=== PATIENT | male | born 2000 | race Caucasian/White ===

== ENCOUNTER 2022-09-28 21:09 | Emergency (ER) | payer OTHER, SELFPAY ==
[2022-09-28 21:16] VITALS: BP 125/71; PULSE 77; RESP 18; TEMP 36.6; O2SAT 100; BMI 23.0
--- NOTE | 2022-09-28 21:31 | ED_ITS ---
HPI - Dental/Oral General Time Seen by Provider: 21:31 Date Seen: 09/28/22 Chief complaint: Dental/Oral/Mouth Injury/Pain Stated complaint: right sided jaw pain Time Seen by Provider: 09/28/22 21:30 Source: patient and RN notes reviewed Mode of arrival: ambulatory Limitations: no limitations History of Present Illness HPI Narrative: Patient is coming in with right lower molar pain, his 2nd to last molar on the right lower jaw is painful. He has been taking Tylenol and ibuprofen. He is drinking water as it feels better when there was water on it. No fevers. He has a dentist appointment this . He admits he is not been to the dentist in a long time, has not had his wisdom teeth looked at. MD Complaint: tooth pain Related Data Allergies Allergy/AdvReac Type Severity Reaction Status Date / Time No Known Drug Allergies Allergy Verified 09/28/22 21:15 Review of Systems Narrative: As per HPI PFSH PFSH Social History Smoking Status: Current some day smoker Do you use any of these nicotine containing products: Vaping Products Second hand tobacco smoke exposure: No How often do you have a drink containing alcohol: never AUDIT-C Alcohol total score: 0 Non-prescribed substance use: marijuana (any form) service: No Exam Const: Vital Signs, click to edit/add: Vital Signs - 24 hr 09/28/22 21:16 Temperature 97.8 F Pulse Rate [Pulse Oximeter] 77 Respiratory Rate 18 Blood Pressure [Ri ght Upper Arm] 125/71 Pulse Oximetry 100 Oxygen Delivery Me thod Room Air 22-year-old male is alert interactive no apparent distress, able to speak in complete sentences. Face is atraumatic, no swelling or erythema noted. The 2nd to last molar on the right lower jaw has a crack along the gumline with a chunk of missing external tooth. Can see underlying exposed internal pulp of the tooth. There is no visible fluctuance or erythema or palpable abscess. He is definitely tender on the outside of the tooth where there is exposed internal contents of the tooth. Documenting provider has reviewed patient's vital signs: yes Course Vital Signs Vital signs: Initial Vital Signs Temperature 97.8 F 09/28/22 21:16 Temperature Source Temporal Artery Scan 09/28/22 21:16 Pulse Rate 77 09/28/22 21:16 Pulse Rhythm Regular 09/28/22 21:16 Respiratory Rate 18 09/28/22 21:16 Blood Pressure 125/71 09/28/22 21:16 Blood Pressure Mean 89 09/28/22 21:16 Blood Pressure Position Supine 09/28/22 21:16 Pulse Oximetry 100 09/28/22 21:16 Oxygen Delivery Method Room Air 09/28/22 21:16 Vital Signs Temperature 97.8 F 09/28/22 21:16 Pulse Rate 77 09/28/22 21:16 Respiratory Rate 18 09/28/22 21:16 Blood Pressure 125/71 09/28/22 21:16 Pulse Oximetry 100 09/28/22 21:16 Oxygen Delivery Method Room Air 09/28/22 21:16 Temperature 97.8 F 09/28/22 21:16 Pulse Rate 77 09/28/22 21:16 Respiratory Rate 18 09/28/22 21:16 Blood Pressure 125/71 09/28/22 21:16 Pulse Oximetry 100 09/28/22 21:16 Oxygen Delivery Method Room Air 09/28/22 21:16 Critical Care Time Critical Care Time Critical Care Time: No Discharge Plan Discharge Clinical Impression: Pain, dental Patient Disposition: Home, Self-Care Condition: Stable Instructions: Toothache (ED) Additional Instructions: Can continue with Tylenol and ibuprofen, follow bottle directions for dosing. If you have more severe pain, have written for tramadol, follow prescription instructions. We will cover with antibiotics in case there is underlying dental abscess starting. You absolutely need to follow up with the dentist for definitive care. No driving or operating machinery if you need the tramadol as this is a narcotic medication. Penicillin 500 mg, 1 tablet 3 times a day for 7 days Tramadol 50 mg, 1 every 6 hours as needed for pain, no driving, 15 prescribed Stand Alone Forms: [employer] Info Instructions
== END 2022-09-28 21:57 | disposition home or self-care (01) ==
LOC: ED 21:54
PROVIDERS: Emergency Provider Family Medicine
DX: K08.89 Other specified disorders of teeth and supporting structures (principal)
CPT/HCPCS: 99282

== ENCOUNTER 2024-10-15 21:57 | Emergency (ER) | payer BC, SELFPAY ==
--- OUTSIDE RECORDS SUMMARY | 2024-10-15 21:59 | XMS_ITS | Clinical Summary ---
Author Organization [facility] Address [address] [place] [id number] Care Team Providers Care Clinical Transformation Specialist Name Role Phone [facility] - Primary Care Provider Allergies Active Allergy Reactions Criticality Noted Date Comments Homeopathic Products Rash 10/26/2006 Medications No known medications Active Problems No known active problems Social History Tobacco Use Types Packs/Day Years Used Date Smoking Tobacco: Never Smokeless Tobacco: Never Tobacco Cessation:Counseling Given: Yes Alcohol Use Standard Drinks/Week Comments No 0 (1 standard drink = 0.6 oz pur e alcohol) Social Connections Answer Date Recorded Do you often feel lonely or isolated from those around you? 0 04/21/2024 Financial Resource Strain Answer Date R ecorded Difficulty of Paying Living Expenses 3 04/21/2024 Difficulty of Paying Living Expenses Not on file 04/21/2024 Food Insecurity Answer Date Recorded Do you worry your food will run out before you are able to buy more? 1 04/21/2024 Transportation Needs Answer Date Record ed Does lack of transportation keep you from medica l appointments? 1 04/21/2024 Does lack of transportation keep you from work, meetings or getting things that you need? 1 04/21/2024 Housing Stability Answer Date Recorded What is your housing situation today? 1 04/21/2024 Utilities Answer Date Recorded Do you have trouble paying f or utilities (for example, heat, electricity, water, phone)? 1 04/21/2024 Sex and Gender Information Value Date Recorded Sex Assigned at Not on file Legal Sex Male 6:29 AM TRAIN INSPECTOR Gender Identity Not on file Sexual Orientation Not on file Obstetrics History Last Filed Vital Signs Vital Sign Reading Time Taken Comments Blood Pressure 114/79 04/21/2024 12:51 PM TRAIN INSPECTOR Pulse 72 04/21/2024 12:51 PM TRAIN INSPECTOR Temperature 36.2 C (97.2 F) 10/27/2006 7:45 AM CDT Respiratory Rate 20 10/27/2006 7:55 AM CDT Oxygen Saturation 100% 04/21/2024 12: 51 PM TRAIN INSPECTOR Inhaled Oxygen Concentration - - Weight 77.9 kg (171 lb 12.8 oz) 025 12:51 PM TRAIN INSPECTOR Height 109.2 cm (3' 7) 10/27/2006 6:23 AM CDT Body Mass Index - - Plan of Treatment Health Maintenance Due Date Last Done Comments Tetanus booster 2013 Depression screening for age 12+ 2014 HIV for age 15-65 2017 HPV series for age 9-26 (1 - Male 3-dose series) 2017 BMI (ht and wt on same day) for age 18+ 2020 Hepatitis C screening for ag e 18-79 2020 Hepatitis B series for 19+ ( 1 of 3 - 19+ 3-dose series) 2021 COVID-19 vaccine series (3 - 2023-25 season) 2023 03/23/2021, 03/02/2021 Influenza Vaccine (#1) 2024 Pneumococcal series for age 6-49 Aged Out No longer eligible b ased on patient's age to complete this topic Insurance [facility] [id number] [place] [address] Advance Directives * Full Code (Latest Code Status on File) Date Activated Date Inactivated Comments 10/27/2006 6:34 AM 10/27/2006 10:34 AM Care Teams Clinical Transformation Specialist Relationship Specialty Start Date End Date [facility] - [address] [facility] [place] [address] PCP - General 06/09/22
--- OUTSIDE RECORDS SUMMARY | 2024-10-15 21:59 | XMS_ITS | Clinical Summary ---
Author Organization [facility] Address [address] [place] [address] [place] [address] Care Team Providers Care Harmonica Maker Name Role Phone No Ref-Primary, Physician Primary Care Provider Allergies No known active allergies Medications No known medications Active Problems No known active problems Immunizations Immunization Administration Dates Next Due Comvax (HIB/HepB) 06/11/2003,2002,08/03/19 03 DTAP (<7y) 10/18/2007, 4,2002,10/09,2002 Flu, Unspecified 01/28/2006,12/30/2005 Hepatitis A (Vaqta/Havrix)(P eds 12m-18y) 11/12/2014 Influenza (IIV3) PF 12/10/2003,01/05/2003,2002 Influenza (prior to 2023) 01/22/2012 Influenza Intranasal Vaccine 01/30/2010 Influenza Vaccine >6 months,quad, PF 11/15/2018, 01/30/2014 MMR (MMRII) 10/18/2007,06/11/2003 Meningococcal ACWY (Menveo ) 09/25/2013 Pneumococcal (PCV 7) 2002,2002,08/02 Poliovirus, inactivated (IPV) 10/18/2007 ,2002,2002,08/02 TDAP Vaccine (Adacel) 09/25/2013 Varicella (Varivax) 10/18/2007,06/11/2003 Family History Relation Status Comments Father Alive Mother Alive Social History Tobacco Use Types Packs/Day Years Used Date Smoking Tobacco: Never Smokeless Tobacco: Never Alcohol Use Standard Drinks/Week Comments Never 0 (1 standard drink = 0.6 oz pur e alcohol) AUDIT-C Answer Date Recorded Q1: How often do you have a drink containing alc ohol? Never 11/15/2018 Average Number of Drinks Not on file 019 Frequency of Binge Drinking Not on file 10/30 PHQ-2 Answer Date Recorded PHQ-2 Score 0 04/11/2019 Adolescent Education Answer Date Record ed Getting School Help Needed Not on file 11/20 Sex and Gender Information Value Date Recorded Sex Assigned at Not on file Legal Sex Male 5:10 PM CDT Gender Identity Not on file Sexual Orientation Not on file Last Filed Vital Signs Vital Sign Reading Time Taken Comments Blood Pressure 121/88 04/11/2024 4:10 AM LOAN REPRESENTATIVE Pulse 84 04/11/2024 4:10 AM LOAN REPRESENTATIVE Temperature 36.6 C (97.8 F) 04/11/2024 3:17 AM LOAN REPRESENTATIVE Respiratory Rate 18 04/11/2024 3:17 AM LOAN REPRESENTATIVE Oxygen Saturation 99% 04/11/2024 4:10 AM LOAN REPRESENTATIVE Inhaled Oxygen Concentration - - Weight 74.8 kg (165 lb) 04/11/2024 3:17 AM LOAN REPRESENTATIVE Height 180.3 cm (5' 11) 11/21/2018 6:24 PM CDT Body Mass Index 23.01 11/21/2018 6:24 PM CDT Plan of Treatment Health Maintenance Due Date Last Done Comments ADVANCE CARE PLANNING 2002 ANNUAL REVIEW OF HM ORDERS 2002 YEARLY PREVENTIVE VISIT 2005 HIV SCREENING 2017 HPV VACCINE (1 - Male 3-dose series) 2017 MENINGITIS B VACCINE (1 of 2 - Standard) 2018 HEPATITIS C SCREENING 2020 DTAP/TDAP/TD VACCINE (7 - Td or Tdap) 09/26/2023 09/25/2013, 10/18/2007, 12/10/2003, Additional history exists COVID-19 VACCINE ( - season) 2023 PHQ-2 (once per calendar year) 2024 04/11/2019, 11/21/2018 INFLUENZA VACCINE (#1) 2024 9, 01/30/2014, 01/22/2012, Additional history exists ZOSTER VACCINE (1 of 2) 2052 PNEUMOCOCCAL VACCINE: PEDIATRICS (0 to 5 YEARS) AND AT-RISK PATIENTS (6 to 49 YEARS) Aged Out 2002, 2002, 2002 No longer eligible based on patient's age to complete this topic HEPATITIS B VACCINE Completed 06/11/2003, 2002, 2002 MENINGITIS VACCINE Aged Out 09/25/2013 No longer eligible based on patient's age to complete this topic [place] Care Teams Harmonica Maker Relationship Specialty Start Date End Date No Ref-Primary, Physician PCP - General 11/14/18
[2024-10-15 22:05] VITALS: BP 133/84; PULSE 130; RESP 20; TEMP 36.8; O2SAT 98; BMI 23.0
[2024-10-15 23:09] LABS: Hematocrit 46.7 % (37.0-53.0); Hemoglobin* 16.2 gm/dL (13.5-17.5); Immature Granulocytes Abs Auto 0.07 K/uL (0.00-0.30); Immature Granulocytes Pct Auto 1.0 %; Mean Corpuscular HGB Conc 35 gm/dL (32-36); Mean Corpuscular Hemoglobin 29 pg (26-34); Mean Corpuscular Volume 85 fL (80-100); RDW Coefficient of Variation % 11.7 % (11.5-15.5); Red Blood Count 5.51 m/uL (4.30-5.90); White Blood Count* 6.84 K/uL (4.50-11.00)
[2024-10-15 23:18] LABS: Lymphocytes Absolute Auto 0.30 K/uL (0.90-2.90); Slide Review Reflex No
[2024-10-15 23:20] VITALS: PULSE 96; RESP 20; O2SAT 98
[2024-10-15 23:22] LABS: Albumin* 5.0 g/dL (3.3-5.0); Chloride* 101 mmol/L (96-114); Potassium* 4.0 mmol/L (3.6-5.1); Sodium* 138 mmol/L (135-149)
[2024-10-15 23:24] LABS: Blood Urea Nitrogen* 13 mg/dL (5-24); Creatinine* 0.9 mg/dL (0.5-1.5); Est. Creatinine Clearance* 136.29; Estimated Glomerular Filt Rate 124 ml/min
[2024-10-15 23:25] LABS: Alanine Aminotransferase* 16 U/L (4-50); Alkaline Phosphatase* 77 U/L (40-150); Anion Gap 12 mEq/L (7-15); Aspartate Amino Transferase* 25 U/L (12-35); Bilirubin Total* 1.7 mg/dL (0.1-1.5); Calcium* 9.4 mg/dL (8.4-10.6); Carbon Dioxide* 25 mmol/L (20-32); Glucose* 118 mg/dL (60-115); Total Protein* 8.0 g/dL (6.0-8.3)
--- NOTE | 2024-10-15 23:28 | ED.GENADULT ---
HPI - General Adult General Chief complaint: Nausea/Vomiting Stated complaint: vomiting, nausea Time Seen by Provider: 10/15/24 22:51 History of Present Illness HPI narrative: Pt reports onset of nausea /vomiting this AM after waking . States has vomited approx 8 times today. Reports accompanying medial abd pain with this. Did have [employer] last night, unsure if could be possible food poisoning. 24-year-old young man presenting to the emergency department with concern of repeated vomiting. Does not describe hematochezia. 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 Numerous vomiting episodes. Does have a little abdominal discomfort. Did have some Ber[employer] last night. Would wonder about food poisoning. No notable exposures otherwise. No fever. No diarrhea. Is thirsty. No rashes noted. Does not really have trouble with heartburn. Does use THC regularly. It is my understanding that has had episodes of vomiting similar 2 or 3 times over the last few years. Related Data Home Medications ?Medication ?Instructions ?Recorded ?Confirmed No Known Home Medications 10/15/24 10/15/24 Allergies Allergy/AdvReac Type Severity Reaction Status Date / Time No Known Drug Allergies Allergy Verified 09/07/23 12:35 Review of Systems Status of ROS: Reports: 6 or more systems reviewed and unremarkable except as noted in History and below PFSH ON LICENSE OF [facility] Social History Smoking Status: Never smoker Do you use any of these nicotine containing products: Vaping Products Second hand tobacco smoke exposure: No How often do you have a drink containing alcohol: never AUDIT-C Alcohol total score: 0 Non-prescribed substance use: marijuana (any form) service: No Exam Narrative: Exam Narrative: Pleasant. Appears tired. Oropharynx sounds little sticky. Lungs are clear. Heart is tachycardic in a regular rhythm. No murmur rub or gallop identified. Abdomen is flat and soft without peritoneal signs. He is mildly uncomfortable generally palpation. No masses appreciated. Skin is warm and dry without rash. Well-perfused peripherally. No edema. Const: Vital Signs, click to edit/add: Vital Signs - 24 hr 10/15/24 22:05 10/15/24 23:20 Temperature 98.3 F Pulse Rate [Pulse Oximeter] 130 H 96 Respiratory Rate 20 20 Blood Pressure [Ri ght Upper Arm] 133/84 Pulse Oximetry 98 98 Oxygen Delivery Me thod Room Air Room Air Documenting provider has reviewed patient's vital signs: yes Course Vital Signs Vital signs: Initial Vital Signs Temperature 98.3 F 10/15/24 22:05 Temperature Source Oral 10/15/24 22:05 Pulse Rate 130 H 10/15/24 22:05 Respiratory Rate 20 10/15/24 22:05 Blood Pressure 133/84 10/15/24 22:05 Blood Pressure Mean 100 10/15/24 22:05 Blood Pressure Position Sitting 10/15/24 22:05 Pulse Oximetry 98 10/15/24 22:05 Oxygen Delivery Method Room Air 10/15/24 22:05 Vital Signs Temperature 98.3 F 10/15/24 22:05 Pulse Rate 130 H 10/15/24 22:05 Respiratory Rate 20 10/15/24 22:05 Blood Pressure 133/84 10/15/24 22:05 Pulse Oximetry 98 10/15/24 22:05 Oxygen Delivery Method Room Air 10/15/24 22:05 Temperature 98.3 F 10/15/24 22:05 Pulse Rate 96 10/15/24 23:20 Respiratory Rate 20 10/15/24 23:20 Blood Pressure 133/84 10/15/24 22:05 Pulse Oximetry 98 10/15/24 23:20 Oxygen Delivery Method Room Air 10/15/24 23:20 Medications Administered Medications: Discontinued Medications Generic Name Dose Route Start Last Admin Trade Name Freq PRN Reason Stop Dose Admin Sodium Chloride 1,000 mls @ 1,000 mls/hr 10/15/24 23:58 10/16/24 00:02 0.9 % Sodium Chloride 1000 Ml IV 10/16/24 00:57 Infused .Q1H ONE Infusion Ondansetron HCl 4 mg 10/15/24 23:26 10/15/24 23:44 Ondansetron Odt 4 Mg Tab PO 10/15/24 23:27 4 mg ONCE ONE Administration Medical Decision Making [facility] Narrative Medical decision making narrative: Unlikely to have biliary disease. Possible further of GERD but does not usually get heartburn. Infectious etiology possibly. Food ?poisoning? does remain differential. Monitored over time in emergency department. No longer tachycardic. With this and unremarkable labs I do not think requires further workup at this time. Reports improved after IV fluids and Zofran. Tolerated oral challenge. See patient discharge plan for further discussion I am happy you're feeling better. Your labs are reassuring. Will be sending you home with Zofran if needed from [facility]. I do not know that I can be certain of the cause of your vomiting at this point but do take care with marijuana/THC ingestion as discussed. Return for intractable vomiting, marked increase in persistent abdominal pain, associated fever. Lab Data Lab results reviewed: Yes I reviewed the patient's lab results Labs: Lab Results 10/15/24 Range/Units 23:00 WBC 6.84 (4.50-11.00) K/uL RBC 5.51 (4.30-5.90) m/uL Hgb 16.2 (13.5-17.5) gm/dL Hct 46.7 (37.0-53.0) % MCV 85 (80-100) fL MCH 29 (26-34) pg MCHC 35 (32-36) gm/dL RDW Coeff of Naina 11.7 (11.5-15.5) % Plt Count 202 (140-440) K/uL Neut % (Auto) 87.5 H (42.0-72.0) % Lymph % (Auto) 4.5 L (20-44) % Wilcox % (Auto) 6.9 (0.0-11.0) % Eos % (Auto) 0.0 (0.0-7.0) % Baso % (Auto) 0.1 (0.0-3.0) % Neut # (Auto) 6.00 (1.7-7.0) K/uL Lymph # (Auto) 0.30 L (0.90-2.90) K/uL Wilcox # (Auto) 0.50 (0.00-0.90) K/UL Eos # (Auto) 0.00 (0.00-0.50) K/uL Baso # (Auto) 0.01 (0.00-0.30) K/uL Abs Immat Gran (auto) 0.07 (0.00-0.30) K/uL Imm/Tot Granulo (auto) 1.0 % Sodium 138 (135-149) mmol/L Potassium 4.0 (3.6-5.1) mmol/L Chloride 101 (96-114) mmol/L Carbon Dioxide 25 (20-32) mmol/L Anion Gap 12 (7-15) mEq/L BUN 13 (5-24) mg/dL Creatinine 0.9 (0.5-1.5) mg/dL Estimated Creat Clear 136.29 Estimated GFR 124 ml/min Glucose 118 H (60-115) mg/dL Calcium 9.4 (8.4-10.6) mg/dL Total Bilirubin 1.7 H (0.1-1.5) mg/dL AST 25 (12-35) U/L ALT 16 (4-50) U/L Alkaline Phosphatase 77 (40-150) U/L Total Protein 8.0 (6.0-8.3) g/dL Albumin 5.0 (3.3-5.0) g/dL Discharge Plan Discharge Clinical Impression: Vomiting, Dehydration Patient Disposition: Home w/ Parent or Adult Condition: Improved Additional Instructions: I am happy you're feeling better. Your labs are reassuring. Will be sending you home with Zofran if needed from [facility]. I do not know that I can be certain of the cause of your vomiting at this point but do take care with marijuana/THC ingestion as discussed. Return for intractable vomiting, marked increase in persistent abdominal pain, associated fever. Prescriptions: No Action No Known Home Medications Follow Up/Referrals: Provider,Not a Local [Primary Care Provider, Family Practice] Stand Alone Forms: [employer] - [employer] Info Instructions
[2024-10-15] MEDS: ONDANSETRON ODT 4 MG TAB PO (23:44)
== END 2024-10-16 00:35 | disposition home or self-care (01) ==
PROVIDERS: Emergency Provider Family Medicine
DX: R11.10 Vomiting, unspecified (principal); E86.0 Dehydration
CPT/HCPCS: 36415; 80053; 85025; 96360; 99283; 99284; A9270; J7030